=== PATIENT | female | born 1985 | race Caucasian/White ===

== ENCOUNTER 2019-02-25 16:24 | Emergency (ER) | payer MEDICAID, OTHER ==
[~2019-02-25] VITALS: Ht 157.5 cm; Wt 77.0 kg
[2019-02-25 16:28] VITALS: Ht 157.5 cm; Wt 77.0 kg
[2019-02-25] MEDS ORDERED: ACETAMINOPHEN 325 MG TAB PO ONE (17:00)
[2019-02-25] MEDS ORDERED: FAMOTIDINE 20 MG TAB PO ONE (17:00)
[2019-02-25] MEDS ORDERED: [UNRECOGNIZED DRUG - OTHER] PO (17:29)
[2019-02-25] MEDS ORDERED: PNV11TAB PO (17:30)
--- NOTE | 2019-02-25 17:34 | ERD ---
ER Documentation Chief Complaint Chief Complaint Central non-radiating CP 9/10 pain since this morning HPI 33 year-old female G1, P0 currently 30 weeks who presents with complaint of midsternal chest pain since this morning. Patient describes midsternal pressure-like chest pain without radiation that is intermittent. Pain made worse by laying flat. She denies associated shortness of breath, mills, lower extremity swelling, nausea, vomiting, abdominal or pelvic pain, vaginal bleeding or discharge, urinary symptoms. Denies any prior history of cardiac or pulmonary disease, has had URI type symptoms and feels like she was "coming down with the flu" including mild sore throat with intermittent dry cough. She denies any sick contacts at home. Has not taken anything for pain. Recently saw her QUALITY CONTROL ASSESSOR on the of this month and had a normal ultrasound. ROS All systems reviewed and are negative except as per history of present illness. Medications Home Meds Reported Medications [id number] ( 19) 1 Each Tablet, 1 TAB PO DAILY, TAB 02/25/19 Levothyroxine Sodium (Synthroid ()) 25 Mcg/Ml Susp, 20 MCG PO DAILY, TAB 02/25/19 Allergies Allergies: Coded Allergies: No Known Allergy (Unverified , 02/25/19) PMhx/Soc Medical and Surgical Hx: pt denies Medical Hx, pt denies Surgical Hx Hx Alcohol Use: No Hx Substance Use: No Hx Tobacco Use: No Smoking Status: Never smoker Physical Exam Vitals Vital Signs Date Temp Pulse Resp B/P (MAP) Pulse Ox O2 O2 Flow FiO2 Time Delivery Rate 02/25/19 97.8 104 18 104/75 98 Room Air 19:04 (85) 02/25/19 99.5 111 18 141/67 95 16:28 (91) Physical Exam Const: No acute distress Head: Atraumatic Eyes: Normal Conjunctiva ENT: Normal External Ears, Nose and Mouth. Neck: Full range of motion. No meningismus. Resp: Clear to auscultation bilaterally Cardio: Regular rate and rhythm, no murmurs Abd: Soft, non tender, non distended. Normal bowel sounds Skin: No petechiae or rashes Back: No midline or flank tenderness Ext: No cyanosis, or edema Neur: Awake and alert Psych: Normal Mood and Affect Results 24 hrs Current Medications Medications Dose Sig/Violet Start Time Status Last (Trade) Ordered Route PRN Stop Time Admin Dose Reason Admin 650 mg ONCE ONCE 02/25/19 DC Acetaminophen PO 17:00 (Tylenol 02/25/19 17:01 Tab) Famotidine 20 mg ONCE ONCE 02/25/19 DC 02/25/19 (Pepcid) PO 17:00 19:33 02/25/19 17:01 Procedures/MDM 33-year-old female 30 weeks presents with atypical chest pain complaint. I have low suspicion for acute cardiopulmonary process such as ACS, pulmonary embolism, pneumothorax, related emergency such as preeclampsia, help syndrome warranting further emergent care or work-up. No overt risk factors for ACS ECG without overt e/o STEMI, Brugadas sign, delta wave, epsilon wave, significantly prolonged QTc, or malignant arrhythmia. Low Wells score with low risk for PE and no significant hypoxia. Given chronicity and pain characteristics, low s/f dissection. Exam and history not consistent with significant PTX or PNA. ED course: Vital signs notable for heart rate of 111, BP 141/67, O2 saturation 95% Vital signs improved on recheck Patient sent to OB for clearance, obstructed ultrasound unremarkable with viable fetus EKG reviewed, no overt evidence of contiguous ST segment elevations, low suspicion for acute SD. No overt tachy- or bradydysrhythmias. Low suspicion for WPW, long QT, HOCM, Brugada after EKG review. Pain controlled, well appearing. Cautious return precautions discussed with full understanding. Prompt follow up with primary care physician discussed. DISPOSITION PLAN: We discussed follow up with the patient's primary care doctor within 24 to 48 hours. Patient counseled regarding my diagnostic impression and care plan. Prior to discharge all questions answered. Pt agrees with treatment plan and unde rstands strict return precautions. Precautionary instructions provided including instructions to return to the ER if not improving or for any worsening or changing symptoms or concerns. Disclaimer: Inadvertent spelling and grammatical errors are likely due to EHR/dictation software use and do not reflect on the overall quality of patient care. Also, please note that the electronic time recorded on this note does not necessarily reflect the actual time of the patient encounter. Departure Diagnosis: Primary Impression: Chest pain Condition: Stable JULIAN MELGAR PA-C February 25, 2019 17:34
[2019-02-25 19:04] VITALS: BP 104/75; PULSE 104; RESP 18
== END 2019-02-25 20:04 | disposition home or self-care (01) ==
LOC: FTE 16:24
DX: O99.89 Other specified diseases and conditions complicating pregnancy, childbirth and the puerperium (principal); R07.89 Other chest pain; Z3A.30 30 weeks gestation of pregnancy
CPT/HCPCS: 93005; Z7502; Z7610

== ENCOUNTER 2019-02-25 17:13 | Outpatient (CLI) | payer MEDICAID ==
[~2019-02-25] VITALS: Ht 152.4 cm; Wt 77.0 kg
[2019-02-25] MEDS ORDERED: [UNRECOGNIZED DRUG - OTHER] PO (17:29)
[2019-02-25 17:30] VITALS: Ht 152.4 cm; Wt 77.0 kg
[2019-02-25] MEDS ORDERED: PNV11TAB PO (17:30)
[2019-02-25 17:31] VITALS: BP 116/79; PULSE 108; RESP 19
--- NOTE | 2019-02-25 18:20 | TRIAGE ---
OB Triage Datetime Report Generated by CPN: 02/25/2019 18:20 Datetime: 02/25/2019 17:56 Assessment Type: Triage EGA: 30.1 Maternal Assessment Level of Consciousness: Fully Conscious DTR's/Clonus: DTRs 2+; No Clonus Headache: Denies Blurred Vision: No Respiratory Effort: Unlabored; Regular Rhythm; Equal Expansion Breath Sounds, Left: Clear and Equal Breath Sounds, Right: Clear and Equal Nausea/Vomiting: Denies RUQ Epigastric Pain: Denies Lower Extremities Edema: None Degree: None Upper Extremities Edema: None Degree: None Facial Edema: None Fall Risk Assessment History of Falling: (0) No Secondary Diagnosis: (0) No Ambulatory Aid: (0) Bedrest/Nurse Assist IV Therapy: (0) No Gait: (0) Normal/Bedrest/Immobile Mental Status: (0) Oriented to Own Ability Fall Score: 0 Fall Risk Score Definition: No Risk: No action required Labor Evaluation Frequency: occas Monitor Mode: External Duration (sec)2399: 50-70 Quality: Mild Pattern: Normal: <= 5 Contractions in 10 Minutes Resting Tone Godley: Relaxed Heart Rate FHR Baseline Rate: 150 Monitor Mode: External US Variability: Moderate 6-25 bpm Accelerations: 10X10 Decelerations: None Category: Category I Datetime: 02/25/2019 17:54 Time of Arrival: 02/25/2019 17:00 Arrived By: Ambulatory Arrived From: Emergency Dept Chief Complaint: chest pain Movement: Present Contractions: Denies/Absent Rupture of Membranes: Denies Vaginal Bleeding: None Vaginal Discharge: Denies Recent Sexual Intercouse: Denies Abdominal Trauma: Not Applicable Patient Complaints: Other Time Provider Notified: 02/25/2019 17:20 Provider Notified: dr sumner Initial Plan: radha ulloa
== END 2019-02-25 18:21 | disposition home or self-care (01) ==
LOC: L-D 17:13 → OBT 17:13
PROVIDERS: ATTEND Obstetrics & Gynecology
DX: O36.8130 Decreased fetal movements, third trimester, not applicable or unspecified (principal); Z3A.30 30 weeks gestation of pregnancy; O26.893 Other specified pregnancy related conditions, third trimester; R07.9 Chest pain, unspecified
CPT/HCPCS: 76818; Z7500; G0463

== ENCOUNTER 2019-04-13 04:40 | Inpatient (IN) | payer MEDICAID ==
[~2019-04-13] VITALS: Ht 157.5 cm; Wt 80.6 kg
[~2019-04-13 04:40] MED LIST: PNV11TAB PO; [UNRECOGNIZED DRUG - OTHER] PO
[2019-04-13 05:18] VITALS: BP 121/87; PULSE 72; RESP 18
[2019-04-13] MEDS ORDERED: LACTATED RINGER'S 1,000 ML IV PRN (05:55)
[2019-04-13] MEDS ORDERED: LIDOCAINE 1% (MPF) 30 ML INJ INJ PRN (06:00)
[2019-04-13] MEDS ORDERED: IBUPROFEN 600 MG TAB PO PRN (06:00)
[2019-04-13] MEDS ORDERED: CARBOPROST 250 MCG INJ IM PRN ×2 (06:00→23:00)
[2019-04-13] MEDS ORDERED: METHYLERGONOVINE 0.2 MG INJ IM PRN ×2 (06:00→23:00)
[2019-04-13] MEDS ORDERED: MISOPROSTOL 200 MCG TAB PR PRN ×2 (06:00→23:00)
[2019-04-13] MEDS ORDERED: OXYTOCIN 30 UNITS/LR 500 ML IV SCH ×2 (06:00)
[2019-04-13] MEDS ORDERED: BUTORPHANOL 2 MG INJ IV PRN ×2 (06:00)
[2019-04-13] MEDS ORDERED: OXYTOCIN 30 UNITS/LR 500 ML IV PRN ×2 (06:00→23:00)
--- NOTE | 2019-04-13 06:23 | TRIAGE ---
OB Triage Datetime Report Generated by CPN: 04/13/2019 06:23 Datetime: 04/13/2019 06:06 Vaginal Exam Membrane Status: Ruptured Datetime: 04/13/2019 05:20 Time of Arrival: 04/13/2019 04:40 EGA: 36.6 Arrived By: Wheelchair Arrived From: Home Chief Complaint: c/o srom at 0300 Movement: Present Contractions: Irregular Time Contractions Began: 04/13/2019 03:30 Contractions: q10 Rupture of Membranes: Ruptured Vaginal Bleeding: Small Vaginal Discharge: Present Recent Sexual Intercouse: Denies Abdominal Trauma: Not Applicable Patient Complaints: Contractions Time Provider Notified: 04/13/2019 05:50 Provider Notified: Dr Nieves Initial Plan: EFM,SVE Datetime: 04/13/2019 05:10 Stage of : OB Triage Maternal Assessment Level of Consciousness: Keenly Alert, Responsive Headache: Denies Blurred Vision: No Nausea/Vomiting: Denies RUQ Epigastric Pain: Denies Facial Edema: None Labor Evaluation Monitor Mode: External Resting Tone Fithian: Relaxed Heart Rate FHR Baseline Rate: 145 Monitor Mode: External US Pain Assessment Pain Scale: 5 Pain Presence: Intermittent Pain Type: Cramping Pain Location: Abdomen Datetime: 02/25/2019 17:56 EGA: 30.1 Fall Risk Assessment Fall Score: 0 Fall Risk Score Definition: No Risk: No action required
[2019-04-13] MEDS: LACTATED RINGER'S 1,000 ML IV SCH ×3 (07:47→13:35)
--- NOTE | 2019-04-13 09:17 | PREAC ---
Date/Time of Note Date/Time of Note DATE: 04/13/19 TIME: 09:16 Anesthesia Eval and Record Evaluation Time Pre-Procedure Interview DATE: 04/13/19 TIME: 09:16 Age 33 Sex female NPO: 8 hrs Preoperative diagnosis LABOR PAIN Planned procedure LABOR EPIDURAL Past Medical History Past Medical History: Includes : : (1), Para: (0), Gestational age: (36 6/7 WEEKS) Surgery & Anesthesia Issues No known issue Meds Anticoagulation: No Beta Jennifer within 24 hr: No Reason Beta Jennifer not given: Pt. not on B-Jennifer Reported Medications [id number] [id number]-BC-FKF ( 19) 1 Each Tablet, 1 TAB PO DAILY, TAB 02/25/19 Levothyroxine Sodium (Synthroid ()) 25 Mcg/Ml Susp, 20 MCG PO DAILY, TAB 02/25/19 Current Medications Lactated Ringer's 1,000 ml @ 125 mls/hr Q8H IV Last administered on 04/13/19at 07:47; Admin Dose 125 MLS/HR; Start 04/13/19 at 05:55 Butorphanol Tartrate (Stadol) 1 mg Q2H PRN IV .PAIN SCALE 1-5; Start 04/13/19 at 06:00 Butorphanol Tartrate (Stadol) 2 mg Q2H PRN IV .PAIN SCALE 6-10 Last administered on 04/13/19at 07:47; Admin Dose 2 MG; Start 04/13/19 at 06:00 Lidocaine (Xylocaine 1% (Mpf)) 30 ml ONCE PRN INJ .EPISIOTOMY; Start 04/13/19 at 06:00 Oxytocin/Lactated Ringer's 500 ml @ 500 mls/hr ONCE POST IV ; Start 04/13/19 at 06:00 Oxytocin/Lactated Ringer's 500 ml @ 125 mls/hr POST IV ; Start 04/13/19 at 06:00 Ibuprofen (Motrin) 600 mg ONCE PRN PO .PAIN 1-5; Start 04/13/19 at 06:00 Lactated Ringer's 1,000 ml @ 2,000 mls/hr Q30M PRN IV .ANESTHESIA; Start 04/13/19 at 05:55 Oxytocin/Lactated Ringer's 500 ml @ 0 mls/hr ONCE PRN IV .VAGINAL BLEEDING; Start 04/13/19 at 06:00 Methylergonovine Maleate (Methergine) 0.2 mg ONCE PRN IM .VAGINAL BLEEDING; Start 04/13/19 at 06:00 Carboprost Tromethamine (Hemabate) 250 mcg ONCE PRN IM .VAGINAL BLEEDING; Start 04/13/19 at 06:00 Misoprostol (Cytotec) 1,000 mcg ONCE PRN MS .VAGINAL BLEEDING; Start 04/13/19 at 06:00 Oxytocin/Lactated Ringer's 500 ml @ 0 mls/hr FOR INDUCTION IV Last administered on 04/13/19at 08:23; Admin Dose 1 MLS/HR; Start 04/13/19 at 06:00 Meds reviewed: Yes Allergies Coded Allergies: No Known Allergy (Unverified , 04/13/19) Allergies Reviewed: Yes Labs/Studies Labs Reviewed: Reviewed by anesthesiologist Result Diagram: 04/13/19 0730 Laboratory Tests 04/13/19 07:30 Blood Bank Test 04/13/19 07:30 Blood Type O POSITIVE Rh Immune Globulin Candidate NO test: N/A Pre-procedure Exam Last vitals Vital Signs Date Temp Pulse Resp B/P (MAP) Pulse Ox O2 O2 Flow FiO2 Time Delivery Rate 04/13/19 98.2 72 18 121/87 Room Air 05:18 (98) Airway: Adequate mouth opening, Adequate thyromental dist Mallampati: Mallampati II Teeth: Normal Lung: Normal Heart: Normal ASA Physical Status ASA physical status: 2 Emergency: None Planned Anesthetic Neuraxial: Epidural Planned Pain Management Epidural Pre-operative Attestations Prior to commencing anesthesia and surgery, the patient was re-evaluated, there was verification of: *The patient's identity *The results of appropriate recent lab work and preoperative vital signs *The above evaluation not changing prior to induction *Anesthetic plan, risk benefits, alternative and complications discussed with patient/family; questions answered; patient/family understands, accepts and wishes to proceed. Hiren Hebert M.D. Apr 13, 2019 09:17
[2019-04-13] MEDS ORDERED: FENTAnyl 2MCG/ML-ROPIV 0.2% 100 ML ONE (09:18)
--- NOTE | 2019-04-13 12:39 | PAC ---
Date/Time of Note Date/Time of Note DATE: 04/13/19 TIME: 12:39 Post-Anesthesia Notes Post-Anesthesia Note Last documented vital signs Vital Signs Date Temp Pulse Resp B/P (MAP) Pulse Ox O2 O2 Flow FiO2 Time Delivery Rate 04/13/19 98.2 72 18 121/87 Room Air 05:18 (98) Activity: WNL Respiratory function: WNL Cardiovascular function: WNL Mental status: Baseline Pain reasonably controlled: Yes Hydration appropriate: Yes Nausea/Vomiting absent: Yes Hiren Hebert M.D. Apr 13, 2019 12:39
[2019-04-13] MEDS ORDERED: NALOXONE (0.4 MG/ML) INJ IV PRN (13:00)
[2019-04-13] MEDS ORDERED: DIPHENHYDRAMINE 50 MG INJ IV PRN (13:00)
[2019-04-13] MEDS ORDERED: TRIMETHOBENZAMIDE 100 MG/ML VIAL IM PRN (13:00)
[2019-04-13] MEDS ORDERED: FENTAnyl 2MCG/ML-ROPIV 0.2% 100 ML BAG EPI SCH (13:00)
[2019-04-13] MEDS ORDERED: ONDANSETRON 4 MG INJ IV PRN (13:00)
[2019-04-13] MEDS ORDERED: AMPICILLIN 2 GM/NS (PMX) 100 ML IV ONE (15:30)
--- NOTE | 2019-04-13 18:40 | HP ---
Date/Time of Note Date/Time of Note DATE: 04/13/19 TIME: 18:36 OB - History Hx of Present Free Text/Dictation 33y.o primigravida at 36w6d with PPROM . Ve /-2 GBS Neg CAT I uc3-5min GBS neg admitted for expectant management. Chief Complaint: SROM Estimated Due Date: May 05, 2019 : 1 Para: 0 Care: Good Care Ultrasounds: Normal mid trimester US Obstetrical Complications: None Medical Complications: None Past Family/Social History * Past Medical, Surgical, Family and Obstetric Histories reviewed from chart. Blood Type: O+ Rubella: immune RPR/VDRL: Negative GBS Status: Negative HBsAG: Negative OB Admission Exam Vital Signs Vital Signs Vital Signs Date Temp Pulse Resp B/P (MAP) Pulse Ox O2 O2 Flow FiO2 Time Delivery Rate 04/13/19 98.2 72 18 121/87 Room Air 05:18 (98) Physical Exam HEENT: WNL Heart: Rhythm Normal Lungs: Clear, Equal Abdomen: WNL Extremities: Normal Reflexes: Normal Cervical Dilatation: 1cm Effacement: 75% Station: -2 Membranes: Ruptured Amniotic Fluid: Clear Heart Rate: 130's Accelerations: Accelerations Present Decelerations: No Decelerations Varibility: Moderate Contractions on Admission: < 5 Minutes Apart Intensity: Mild Last 72 hours Lab Results CBC & BMP 04/13/19 07:30 Liver Function Test 04/13/19 07:30 Alanine Aminotransferase (ALT/SGPT) 22 Albumin 3.5 Alkaline Phosphatase 208 H Aspartate Amino Transf (AST/SGOT) 26 Direct Bilirubin 0.00 Total Protein 6.6 OB Assessment/Plan Other Assessment: IUP 36w6d PPROM in early labor Plan: Expectant Management, Other (pitocin augmentation) Induction Method: per Pitocin Protocol GAYATHRI HASKINS MD Apr 13, 2019 18:40
[2019-04-13] MEDS: OXYTOCIN 30 UNITS/LR 500 ML IV SCH ×2 (18:54→23:41)
[2019-04-13] MEDS ORDERED: AMPICILLIN 1 GM/NS (PMX) 50 ML IV SCH (19:30)
[2019-04-13] MEDS ORDERED: LEVOTHYROXINE 100 MCG TAB PO ONE (21:30)
[2019-04-13 21:40] VITALS: BP 116/67; PULSE 84; RESP 19
[2019-04-13 22:35] VITALS: BP 118/64; PULSE 80; RESP 19
[2019-04-13] MEDS ORDERED: OXYCODONE/ASPIRIN (4.88/325) TAB PO PRN ×2 (23:00)
[2019-04-13] MEDS ORDERED: ZOLPIDEM 5 MG TAB PO PRN (23:00)
[2019-04-13] MEDS: WITCH HAZEL/GLYCERIN PAD PR PRN (23:37)
[2019-04-13] MEDS: BENZOCAINE 20% 56 ML SPRAY TOP PRN (23:37)
[2019-04-13] MEDS: LANOLIN HPA 1 PKT TOP PRN (23:38)
[2019-04-14] VITALS: BP 116/57; PULSE 78; RESP 19
[2019-04-14 04:05] VITALS: BP 109/58; PULSE 73; RESP 19
[2019-04-14] MEDS: IBUPROFEN 600 MG TAB PO SCH ×4 (05:32→17:16)
[2019-04-14 08:00] VITALS: BP 113/67; PULSE 77; RESP 18
[2019-04-14] MEDS: SENNA/DOCUSATE NA (8.6MG/50MG) TAB PO SCH ×2 (09:50→21:00)
[2019-04-14 15:31] VITALS: BP 115/59; PULSE 80; RESP 18
--- NOTE | 2019-04-14 18:22 | LDN ---
Date/Time of Note Date/Time of Note DATE: 04/14/19 TIME: 18:15 Delivery Summary of normal male with loose nuchal cord Weeks of Gestation 36w6d Placenta Delivered: Spontaneously, Intact & Complete Meconium: none Episiotomy: Yes Indication for episiotomy too tight expected laceration Perineal laceration: 0 Anesthesia type: Epidural Estimated blood loss: 0 Sponge & Needle done & correct: Yes All needle counts correct: Yes Any foreign bodies felt in the: No Delivery Information Sex Sex: male Apgars 1 Minute: 9 5 Minute: 9 Suctioning Nose & mouth suctioned at ness: Yes Delee suction performed: Yes Umbilical Cord Umbilical cord with: 3 Vessels Cord presentations: nuchal cord Nuchal cord present X: 1 Cord Blood was obtained: Yes Mother & Baby Disposition Disposition Mom & Baby to Maternity; Good: Yes Mom transferred to: Other Baby to NICU: No () GAYATHRI HASKINS MD Apr 14, 2019 18:22
[2019-04-14 20:05] VITALS: BP 120/64; RESP 18
[2019-04-15] MEDS: IBUPROFEN 600 MG TAB PO SCH ×4 (00:16→17:40)
[2019-04-15 04:15] VITALS: BP 116/69; PULSE 80; RESP 18
[2019-04-15] MEDS ORDERED: LEVOTHYROXINE 100 MCG TAB PO SCH (06:00)
[2019-04-15 08:00] VITALS: BP 110/68; PULSE 78; RESP 18
[2019-04-15] MEDS: SENNA/DOCUSATE NA (8.6MG/50MG) TAB PO SCH ×2 (08:45→22:16)
[2019-04-15] MEDS: LANOLIN HPA 1 PKT TOP PRN (08:45)
[2019-04-15] MEDS ORDERED: DIPHTH/TET/ACEL PERTUSS (ADULT) 0.5 ML VIAL IM* ONE (09:00)
[2019-04-15] MEDS ORDERED: PRENATAL VITAMIN PO SCH (09:00)
--- NOTE | 2019-04-15 11:22 | PN ---
Date/Time of Note Date/Time of Note DATE: 04/15/19 TIME: 11:20 Assessment/Plan VTE Prophylaxis Risk score (from Ns)>0 risk: 1 SCD applied (from Ns): No SCD contraindicated: low risk/ambulating Pharmacological prophylaxis: NA/contraindicated Pharm contraindication: low risk/ambulating Lines/Catheters IV [facility]from [facility] Peripheral IV Assessment/Plan Assessment/Plan POST DAY 1 HOME TOMORROW RETURN TO CLINIC IN 2 WEEKS CONTINUE WITH VITAMINS OD AND FERROUS SULFATE PO TID DIET ADVISED COUNSELED INSTRUCTED CALL OFFICE IF THERE IS ANY PROBLEMS OR CONCERN Result Diagram: 04/14/19 1306 04/13/19 0730 Results 24hrs Laboratory Tests Test 04/14/19 13:06 White Blood Count 16.4 H Red Blood Count 3.22 L Hemoglobin 10.5 L Hematocrit 31.0 L Mean Corpuscular Volume 96.3 Mean Corpuscular Hemoglobin 32.6 Mean Corpuscular Hemoglobin Concent 33.9 Red Cell Distribution Width 13.5 Platelet Count 174 Mean Platelet Volume 10.3 Immature Granulocytes % 0.700 H Neutrophils % 79.7 H Lymphocytes % 12.2 L Monocytes % 6.5 Eosinophils % 0.6 Basophils % 0.3 Nucleated Red Blood Cells % 0.0 Immature Granulocytes # 0.120 H Neutrophils # 13.1 H Lymphocytes # 2.0 Monocytes # 1.1 H Eosinophils # 0.1 Basophils # 0.1 Nucleated Red Blood Cells # 0.0 Subjective 24 Hr Interval Summary Free Text/Dictation FEELS GOOD, GOOD URINE OUTPUT, GOOD BOWEL MOVEMENT Exam/Review of Systems Exam Vitals Vital Signs Date Temp Pulse Resp B/P (MAP) Pulse Ox O2 O2 Flow FiO2 Time Delivery Rate 04/15/19 98.3 78 18 110/68 08:00 (82) 04/15/19 Room Air 04:15 Exam VITAL SIGNS STABLE: YES AFEBRILE: YES BREAST NOT ENGORGED, NON-TENDER, NO APPRECIABLE MASS: YES LUNGS CLEAR, NO RALES, WHEEZES, RHONCHI: YES SINUS RHYTHM WITHOUT MURMUR: YES ABDOMEN: NON-TENDER FUNDUS: BELOW UMBILICUS BOWEL SOUNDS: PRESENT UTERUS: FIRM INTACT PERINEUM: YES LOCHIA: LIGHT DEEP TENDON REFLEXES: 0 EXTREMITIES: NO CALF TENDERNESS EDEMA SCALE: NONE Results Results 24hrs Laboratory Tests Test 04/14/19 13:06 White Blood Count 16.4 H Red Blood Count 3.22 L Hemoglobin 10.5 L Hematocrit 31.0 L Mean Corpuscular Volume 96.3 Mean Corpuscular Hemoglobin 32.6 Mean Corpuscular Hemoglobin Concent 33.9 Red Cell Distribution Width 13.5 Platelet Count 174 Mean Platelet Volume 10.3 Immature Granulocytes % 0.700 H Neutrophils % 79.7 H Lymphocytes % 12.2 L Monocytes % 6.5 Eosinophils % 0.6 Basophils % 0.3 Nucleated Red Blood Cells % 0.0 Immature Granulocytes # 0.120 H Neutrophils # 13.1 H Lymphocytes # 2.0 Monocytes # 1.1 H Eosinophils # 0.1 Basophils # 0.1 Nucleated Red Blood Cells # 0.0 Medications Medication Current Medications Oxytocin/Lactated Ringer's 500 ml @ 125 mls/hr POST IV Last administered on 04/13/19at 23:41; Admin Dose 125 MLS/HR; Start 04/13/19 at 06:00 Ibuprofen (Motrin) 600 mg Q6 PO Last administered on 04/15/19at 05:59; Admin Dose 600 MG; Start 04/14/19 at 00:00 Oxycodone/Aspirin (Percodan) 1 tab Q3H PRN PO .PAIN 1-5; Start 04/13/19 at 23:00 Oxycodone/Aspirin (Percodan) 2 tab Q3H PRN PO .PAIN 6-10; Start 04/13/19 at 23:00 Zolpidem Tartrate (Ambien) 5 mg QHS PRN PO .INSOMNIA; Start 04/13/19 at 23:00 Senna/Docusate Sodium (Senokot-S) 1 tab BID PO Last administered on 04/15/19at 08:45; Admin Dose 1 TAB; Start 04/14/19 at 09:00 Witch Debbie/ Glycerin (Tucks Pads) 1 pad BEDSIDE MEDICATION PRN [place] .HEMORRHOID/EPISIOTOMY PAIN Last administered on 04/13/19at 23:37; Admin Dose 40 PAD; Start 04/13/19 at 23:00 Benzocaine (Dermoplast [place]) 1 spray BEDSIDE MEDICATION PRN TOP .HEMMO RHOID/EPISIOTOMY PAIN Last administered on 04/13/19at 23:37; Admin Dose 56 SPRAY; Start 04/13/19 at 23:00 Lanolin (Lanolin Hpa) 1 applic BEDSIDE MEDICATION PRN TOP .NIPPLES Last administered on 04/15/19at 08:45; Admin Dose 1 APPLIC; Start 04/13/19 at 23:00 Oxytocin/Lactated Ringer's 500 ml @ 0 mls/hr ONCE PRN IV .VAGINAL BLEEDING; Start 04/13/19 at 23:00 Methylergonovine Maleate (Methergine) 0.2 mg ONCE PRN IM .VAGINAL BLEEDING; Start 04/13/19 at 23:00 Carboprost Tromethamine (Hemabate) 250 mcg ONCE PRN IM .VAGINAL BLEEDING; Start 04/13/19 at 23:00 Misoprostol (Cytotec) 1,000 mcg ONCE PRN [place] .VAGINAL BLEEDING; Start 04/13/19 at 23:00 Levothyroxine Sodium (Synthroid) 100 mcg DAILY@06 PO Last administered on 04/15/19at 05:59; Admin Dose 100 MCG; Start 04/15/19 at 06:00 Prenat Multivit/ [place]/Iron/Folic Ac () 1 tab DAILY PO Last administered on 04/15/19at 08:45; Admin Dose 1 TAB; Start 04/15/19 at 09:00 WILLIAM STEVEN MD Apr 15, 2019 11:22
[2019-04-15 16:12] VITALS: BP 101/68; PULSE 65; RESP 18
[2019-04-15 20:00] VITALS: BP 119/84; PULSE 76; RESP 18
[2019-04-15] MEDS: WITCH HAZEL/GLYCERIN PAD PR PRN (22:17)
[2019-04-15] MEDS: BENZOCAINE 20% 56 ML SPRAY TOP PRN (22:17)
--- NOTE | 2019-04-16 22:42 | DELSUM ---
Delivery Summary A-C Datetime Report Generated by CPN: 04/16/2019 22:41 DELIVERY PERSONNEL Cardiovascular Operating Room Nurse: Iraida Funez MATERNAL INFORMATION Delivery Anesthesia: Epidural Medications in Delivery: LR WITH 30 UNITS PITOCIN Delivery QBL (ml): 300 Placenta Cultured: No Maternal Complications: Other Other Maternal Complications: SROM LABOR SUMMARY EDC: 05/05/2019 00:00 No. Babies in Womb: 1 Attempted: No Labor Anesthesia: Epidural LABOR INFORMATION Reason for Induction: Other Reason for Induction- Other: SROM Onset of Labor: 04/13/2019 03:00 Complete Dilatation: 04/13/2019 15:17 Group B Beta Strep: Negative Antibiotics # of Doses: 1 Antibiotics Time of Last Dose: 04/13/2019 15:00 Steroids Given: None Reason Steroids Not Administered: Not Applicable MEMBRANES Membranes Rupture Method: Spontaneous Rupture of Membranes: 04/13/2019 03:00 Length of Rupture (hr): 15.75 Amniotic Fluid Color: Clear Amniotic Fluid Amount: Moderate Amniotic Fluid Odor: Normal STAGES OF LABOR Stage 1 hr: 12 Stage 1 min: 17 Stage 2 hr: 3 Stage 2 min: 28 Stage 3 hr: 0 Stage 3 min: 1 Total Time in Labor hr: 15 Total Time in Labor min: 46 VAGINAL DELIVERY Episiotomy: Median Laceration Extension: N/A Laceration Type: None Laceration Repair: No Initial Vag Sponge Count: 10 Final Vag Sponge Count: 10 Initial Vag Sharps Count: 2 Final Vag Sharps Count: 2 Sponge Count Correct: Yes Sharps Count Correct: Yes BABY A INFORMATION Delivery Date/Time: 04/13/2019 18:45 Method of Delivery: Vaginal Born in Route : No : N/A Forceps: N/A Vacuum Extraction: N/A Shoulder Dystocia : N/A SHOULDER DYSTOCIA BABY A Delivery Date/Time: 04/13/2019 18:45 PRESENTATION/POSITION BABY A Presentation: Cephalic Cephalic Presentation: Vertex Vertex Position: Left Occipital Anterior Breech Presentation: N/A PLACENTA INFORMATION BABY A Placenta Delivery Time : 04/13/2019 18:46 Placenta Method of Delivery: Spontaneous Placenta Status: Delivered SCORES BABY A Heart Rate 1 min: >100 bpm Resp Effort 1 min: Good Cry Reflex Irritability 1 min: Cough/Sneeze/Pulls Away Muscle Tone 1 min: Active Motion Color 1 min: Body [place], Extremit Blue Resuscitation Effort 1 min: Tactile Stimulation SCORE 1 MIN: 9 Heart Rate 5 min: >100 bpm Resp Effort 5 min: Good Cry Reflex Irritability 5 min: Cough/Sneeze/Pulls Away Muscle Tone 5 min: Active Motion Color 5 min: Body [place], Extremit Blue Resuscitation Effort 5 min: Tactile Stimulation SCORE 5 MIN: 9 INFORMATION BABY A Gestational Age at Delivery: 36.6 Gestational Status: Late - 34- 36.6 Weeks Infant Outcome : Liveborn, with signs of life Condition : Stable Infant Sex: Male IDENTIFICATION/MEDS BABY A ID Band Number: [id number] ID Band Location: Right Leg; Left Arm Sensor Applied: Yes Sensor Number: [id number] Sensor Location : Cord Clamp Vitamin K Given : Not Given Erythromycin Given: Not Given WEIGHT/LENGTH BABY A Infant Birthweight (gm): 2895 Infant Weight (lb): 6 Weight (oz): 6 Infant Length (in): 19.50 Length (cm): 49.53 CORD INFORMATION BABY A No. Cord Vessels: 3 Nuchal Cord : Around Neck x1, Loose Cord Blood Taken: Yes Suction: Mouth; Nose ASSESSMENT BABY A Infant Complications: None Physical Findings at Delivery: Within Normal Limits Respirations: Appears Normal Advertising Columnist/ALS Called : No Transferred To: Remains with Mother
--- NOTE | 2019-04-17 20:51 | HP ---
DATE OF ADMISSION: 04/13/2019 HISTORY OF PRESENT ILLNESS: This is a 33-year-old lady, 1, her EDC 05/05/2019, 36 and 6/7 we eks , admitted to labor and delivery area in labor. She had a spontaneous ruptured bag of wa ter at 3:50 a.m. on 04/13/2019 followed by mild irregular contraction. She had care in [facility] office and the care was uneventful. PAST PERSONAL HISTORY: No history of diabetes, TB, asthma. ALLERGIES: NO ALLERGIES. SOCIAL HISTORY: Patient does not smoke. She does not drink. MEDICATIONS: She does not take any drugs except her iron and vitamins. GYNECOLOGIC HISTORY: She had menarche at the age of 10, every 28 days interval, 3 to 4 days duration , and moderate in amount. FAMILY HISTORY: Grandmother on mother's side has diabetes. REVIEW OF SYSTEMS: CARDIOVASCULAR: No chest pains. RESPIRATORY: No cough. GASTROINTESTINAL: No diarrhea, no vomiting. GENITOURINARY: No dysuria. PHYSICAL EXAMINATION: GENERAL: Reveals a conscious, coherent lady and in no acute distress. VITAL SIGNS: Blood pressure 120/80, pulse rate 80 per minute, respirations 16 per minute. BREASTS, HEART AND LUNGS: Within normal limits. ABDOMEN: Soft, fundic height 36 cm. heart tones 140 per minute. PELVIC: At 12:11 p.m. on 04/13/2019 done by me revealed the cervix to be 5 cm dilated, 100% effaced, station 0 in cephalic presentation with the bag of water ruptured. Nitrazine test was positive. EXTREMITIES: No pedal edema. ADMITTING DIAGNOSIS: A 36 and 6/7 weeks intrauterine in labor with premature rupture of me mbranes. Patient was observed for progress of labor followed by Pitocin augmentation. She received labor epidural and the case was endorsed to Dr. Cantor for further care around 3:00 p.m. [facility] on 04/13/2019. Dictated By: WILLIAM STEVEN MD NS/NTS Conf#: [id number] DID#: [id number] CC: WILLIAM STEVEN MD;*EndCC*
== END 2019-04-15 21:35 | disposition home or self-care (01) | DRG 807 ==
LOC: OBT 04:40 → L-D 04:40 → OBT 05:50 → L-D 05:50 → PP1 21:42
PROVIDERS: ADMIT Obstetrics & Gynecology; ATTEND Obstetrics & Gynecology
PROC: 10E0XZZ Delivery of Products of Conception, External Approach (ICD-10-PCS; principal; 2019-04-13)
PROC: 0W8NXZZ Division of Female Perineum, External Approach (ICD-10-PCS; 2019-04-13)
PROC: 3E033VJ Introduction of Other Hormone into Peripheral Vein, Percutaneous Approach (ICD-10-PCS; 2019-04-13)
DX: O60.13X0 Preterm labor second trimester with preterm delivery third trimester, not applicable or unspecified (principal); Z37.0 Single live birth; O69.81X0 Labor and delivery complicated by cord around neck, without compression, not applicable or unspecified; Z3A.36 36 weeks gestation of pregnancy
CPT/HCPCS: 62322; 76815; 80053; 84560; 85025; 85610; 85730; 86592; 86850; 86870; 86900; 86901; 87340; G0463; J0290; J0595; J2590; J3010; J7120